=== PATIENT | male | born 1960 | race Asian ===

== ENCOUNTER → 2024-09-21 | Emergency (ER) | payer MEDICARE, OTHER ==
[~2024-09-21] VITALS: Ht 167.6 cm; Wt 79.5 kg
[~2024-09-21] MED LIST: AMLO5TAB66 PO; ASPI-1444 PO; ATOR20TA65 PO; CEPH-558 PO; IBUP-1492 PO; LISI10TA PO; MELO-106 PO; SULF-261 PO; TAMS0.4C94 PO
[2024-09-21 14:18] VITALS: TEMP 98
[2024-09-21] MEDS: IBUPROFEN 600 MG TABLET PO ONE (15:28)
[2024-09-21] MEDS: METHOCARBAMOL 500 MG TABLET PO ONE (15:28)
[2024-09-21 16:29] VITALS: BP 155/78; PULSE 86; RESP 18; O2SAT 100
== END | disposition home or self-care (01) ==
LOC: EMS 14:04
DX: M54.2 Cervicalgia (principal); M19.90 Unspecified osteoarthritis, unspecified site; I10 Essential (primary) hypertension; M10.9 Gout, unspecified; N40.0 Benign prostatic hyperplasia without lower urinary tract symptoms; Z91.148 Patient's other noncompliance with medication regimen for other reason; Z79.899 Other long term (current) drug therapy
CPT/HCPCS: 99283